=== PATIENT | female | born 1970 | race African-American/Black ===

== ENCOUNTER 2021-04-28 11:17 | Emergency (ER) | payer OTHER, SELFPAY ==
[2021-04-28 11:44] VITALS: BP 200/74; PULSE 70; RESP 18; TEMP 37.8; O2SAT 99
--- NOTE | 2021-04-28 11:57 | ED.URI ---
HPI - URI/Sore Throat General Chief Complaint: Upper Respiratory Infection Stated Complaint: cough Source: patient Mode of arrival: ambulatory Limitations: no limitations History of Present Illness HPI Narrative: 51-year-old female presented for complaint of persistent cough every evening for about 1 week. Cough is nonproductive, denies associated shortness of breath, chest pain, wheezing, fever or chills. She has been taking DM [place] and cough drops with minimal relief. She states in the past Tessalon Perles have helped. Of note blood pressure is elevated, endorses SQUIRES, she states she is compliant with her medication denies chest pain, palpitations, dizziness, or edema Related Data Allergies Allergy/AdvReac Type Severity Reaction Status Date / Time shellfish derived Allergy Unknown Verified 10/12/16 15:06 Contrast Media Allergy Unknown Unknown Uncoded 07/17/18 08:27 Review of Systems Review of Systems: CONSTITUTIONAL: Denies body aches, fever, chills, or sweats. EYES: Denies visual changes, redness, or discharge. ENT: Denies rhinorrhea, congestion, sore throat, or otalgia. CARDIOVASCULAR: Denies chest pain, palpitations, or edema. RESPIRATORY: Endorses cough, denies dyspnea. GASTROINTESTINAL: Denies abdominal pain, nausea, vomiting, or diarrhea. GENITOURINARY: Denies dysuria or hematuria. SKIN: Denies rash, itching, or wounds. MUSCULOSKELETAL: Denies back pain, joint pain, or myalgia. NEUROLOGIC: Denies headache, numbness, tingling, or weakness. PSYCH: Denies depression or anxiety. PMFSH Comments At time of signature, I have reviewed and agree with nursing past medical, surgical, social and family history unless otherwise noted. Please see nursing chart for further information. There is no relevant family history pertinent to the presenting complaint Exam Narrative: GENERAL: Well-appearing, well-nourished, and in no acute distress. HEAD: Normocephalic, atraumatic. EYES: EOMI. No redness or drainage. Conjunctivae normal. ENT: Mucous membranes pink and moist. No rhinorrhea. TMs normal bilaterally. Throat normal. Uvula midline. NECK: Normal AROM. Supple. No lymphadenopathy. CHEST: No respiratory distress. Clear to auscultation. HEART: Regular rate and rhythm. No murmur appreciated. Normal peripheral pulses. ABDOMEN: Soft, nontender, nondistended, normal active bowel sounds. MUSCULOSKELETAL: No bony tenderness. EXTREMITIES: Normal range of motion. No edema. SKIN: Warm, dry, no rash. Capillary refill normal. Normal skin turgor. NEURO: No focal deficits. Alert and oriented x3. Gait steady. PSYCH: Normal affect. No signs of depression or anxiety. Course Course Emergency Course: BP elevated, pt is aware to contact pcp for further evaluation and management Patient is aware of diagnosis, understands and agrees to treatment plan. Anticipatory guidance given. Patient agrees to follow-up as directed and is aware of reasons to seek care at the emergency department. Portions of this record may have been created with voice recognition software Level of Care: Express Care Visit Vital Signs Vital signs: Vital Signs Temperature 100.1 F H 04/28/21 11:44 Pulse Rate 70 04/28/21 11:44 Respiratory Rate 18 04/28/21 11:44 Blood Pressure 200/74 H 04/28/21 11:44 Pulse Oximetry 99 04/28/21 11:44 Temperature 100.1 F H 04/28/21 11:44 Pulse Rate 70 04/28/21 11:44 Respiratory Rate 18 04/28/21 11:44 Blood Pressure 180/78 H 04/28/21 12:45 Pulse Oximetry 99 04/28/21 11:44 reviewed MDM - URI/Sore Throat Differential Diagnosis Differential diagnosis: Likely upper respiratory infection, viral infection and bronchitis Discharge Plan Discharge Clinical Impression: Cough in adult patient Patient Disposition: Home, Self-Care Condition: Stable Instructions: Antibiotic Form, Antitussive/Decongestant (By mouth), Acute Cough (ED) Additional Instructions: prescription for tesjanon nanettees av
[2021-04-28 12:45] VITALS: BP 180/78
== END 2021-04-28 13:35 | disposition home or self-care (01) ==
PROVIDERS: Emergency Provider Nurse Practitioner Family
DX: R05.9 Cough, unspecified (principal); Z95.1 Presence of aortocoronary bypass graft; E78.00 Pure hypercholesterolemia, unspecified; I10 Essential (primary) hypertension; E11.9 Type 2 diabetes mellitus without complications
CPT/HCPCS: 99213; G0463